=== PATIENT | male | born 1965 | race Caucasian/White ===

== ENCOUNTER → 2024-04-19 | Outpatient (CLI) | payer SELFPAY ==
--- NOTE | 2024-04-19 10:30 | RAD_ITS ---
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 COMPARISON: None FINDINGS: Fracture/dislocation: None visible. Vertebral body heights: Preserved. Incidental note of a limbus vertebra at L2, normal variant. Alignment: Unremarkable. Disc spaces: Variable disc height loss up to mild at L3-L4 with tiny osteophytes. Facets: Minimal facet arthropathy at L5-S1. Soft tissues: Unremarkable. Foreign bodies: None visible. Bone mineralization: Grossly unremarkable. RAD/L/S Spine Min 4 Views IMPRESSION: 1. No visible acute displaced fracture. 2. Overall very mild radiographically evident spondylosis as detailed. 3. Additional description as above. Reading Location: [id number]
== END | disposition home or self-care (01) ==
PROVIDERS: PCP Family Medicine; Referring Provider Chiropractor Orthopedic; Visit Provider Chiropractor Orthopedic
DX: M99.03 Segmental and somatic dysfunction of lumbar region (principal)
CPT/HCPCS: 72110

== ENCOUNTER → 2024-07-24 | Outpatient (CLI) | payer SELFPAY ==
--- NOTE | 2024-07-24 08:15 | MRI_ITS ---
PROCEDURE: SPINE LUMBAR (ROUTINE) 07/24/2024 REASON FOR EXAM: LOW BACK PAIN, UNSPECIFIED TECHNIQUE: Multiplanar and multisequence images were obtained without IV contrast administration. COMPARISON: 04/19/2024. FINDINGS: Diffuse spondylosis. Multilevel degenerative disc disease. There is normal signal intensity from the visualized bone marrow without evidence of replacement or acute fracture. The conus is unremarkable. Straightening of the lumbar lordosis, probably muscular spasm and pain. Evaluation of the individual levels revealed the following: L5-S1: Grade 1 retrolisthesis measuring 2.2 mm. Mild diffuse disc bulge. Superimposed broad-based right foraminal disc protrusion measuring 3.6 mm. Bilateral facet joint arthropathy and ligamentum flavum hypertrophy. The spinal canal is not narrowed. Mild bilateral neural foramina narrowing. L4-5: Mild diffuse disc bulge. Mild bilateral ligamentum flavum hypertrophy. The spinal canal is not narrowed. Mild bilateral neural foraminal narrowing. L3-4: Grade 1 anterolisthesis measuring 4.6 mm. Mild diffuse disc bulge. Superimposed broad-based left foraminal disc protrusion measuring 4.8 mm. Bilateral ligamentum flavum hypertrophy. The spinal canal is not narrowed. There is mild right and moderate left neural foramina narrowing. L2-3: There is mild diffuse disc bulge. The spinal canal is not narrowed. There is no evidence of neural foramina narrowing. L1-2: There is mild diffuse disc bulge. The spinal canal is not narrowed. There is no evidence of neural foramina narrowing. Normal visualized paraspinous soft tissue structures. MRI/Spine Lumbar (Routine) IMPRESSION: Spondylosis. Degenerative disc disease. Reading [facility]
== END | disposition home or self-care (01) ==
PROVIDERS: PCP Family Medicine; Referring Provider Chiropractor Orthopedic; Visit Provider Chiropractor Orthopedic
DX: M54.6 Pain in thoracic spine (principal); M54.50 Low back pain, unspecified
CPT/HCPCS: 72148